=== PATIENT | male | born 1990 | race Two or more races ===

== ENCOUNTER 2020-08-17 04:31 | Emergency (ER) | payer SELFPAY ==
[~2020-08-17] VITALS: Ht 167.6 cm; Wt 86.2 kg
[2020-08-17 06:40] VITALS: BP 149/110
== END 2020-08-17 06:43 | disposition home or self-care (01) ==
LOC: ER 04:31 → EDBD 04:31 → ER 06:43
DX: R04.0 Epistaxis (principal); F15.121 Other stimulant abuse with intoxication delirium